=== PATIENT | female | born 1940 | race Caucasian/White ===

== ENCOUNTER 2017-12-15 11:20 | Inpatient (IN) ==
--- NOTE | 2017-12-15 07:25 | Discharge Summary ---
Orders not resulted at time of discharge: Pending orders 12/15/17 07:23 XR knee RT 1-2V [XR] Routine H/H [Hemoglobin and Hematocrit] [HEME] Routine Date of Encounter: 12/17/17 Time of Encounter: 13:46 - Discharge Diagnosis (1) Status post total knee replacement, right Priority: Primary Status: Acute Comments: Opsite dressing, leave intact until first post-operative visit. If dressing becomes >50% saturated, contact office, remove dressing and place appropriate dressing in its place. Do not allow for dressing to get wet. Zipline in place, plan to remove at post-operative day #14-16. Total Joint Precautions x 6 weeks Apply cold therapy wrap 3-6x/day for 20 minutes at a time. Encourage ambulation throughout the day Use Incentive spirometer 10x/hour. Elevate affected extremity above heart as tolerated. Brace: Wear knee immobilizer at night at first post-op appt (2) Arthritis of knee, right Priority: Primary Status: Acute (3) History of back surgery Priority: Secondary Status: Acute - Hospital Course Hospital course: Ms. Núñez is a 76 year old female status post Right TKR 12/15 with . Patient had uneventful postoperative course. Stable for discharge. . A&O x 3 Afebrile, vital signs stable. Labs reviewed. H/H - stable, asymptomatic Pain control: adequate Participating in PT. All questions and concerns addressed. Educated on use of incentive spirometer. Encouraged ambulation and proper hydration. Patient educated on post-operative restrictions and post-operative care. Assessment and plan: Continue with postoperative care Discharge plan: ECF , discharge today. - Time Spent with Patient Total time spent providing and/or coordinating discharge services: - Discharge Medications Home Medications: Aspirin Enteric Coated [Aspirin EC] 325 mg PO BID #20 tablet. 12/15/17 [Rx] Estrogens, Conjugated [Premarin] 0.625 mg PO DAILY 12/15/17 [History] Gabapentin [Neurontin] 600 mg PO TID 12/15/17 [History] OxyCODONE Immed Rel [Roxicodone 5 MG] 5 mg PO Q6HR PRN 7 Days #28 tablet 12/15/17 [Rx] Oxybutynin Chloride [Ditropan Xl] 10 mg PO DAILY 12/15/17 [History] Progesterone,Micronized [Prometrium] 100 mg PO DAILY 12/15/17 [History] Venlafaxine HCl [Venlafaxine HCl ER] 75 mg PO DAILY 12/15/17 [History] Lidocaine Patch [Lidoderm 5% patch] 1 each TP DAILY adh..patch 12/17/17 [Rx] Allergies/Adverse Reactions: Allergy/AdvReac Type Severity Reaction Status Date / Time acetaminophen [From Tylenol] Allergy Hives Verified 12/15/17 12:41 Primary care physician: Sean Davis MD - Patient Status Disposition: Transfer SNF Condition: Good Functional capacity at discharge: uses cane/walker Overall status at discharge: patient is not back to baseline - Discharge Instructions Instructions: Total Knee Replacement (DC) Follow Up With: Sean Davis MD [Primary Care Provider] -
[2017-12-15] MEDS ORDERED: *HR* FentaNYL (PF) 100 MCG/2 ML VIAL ONE (11:51)
[2017-12-15] MEDS ORDERED: *HR* Midazolam HCl 2 MG/2 ML VIAL ONE (11:52)
[2017-12-15] MEDS ORDERED: *HR* Propofol 200 MG/20 ML VIAL IVP ONE (11:52)
[2017-12-15] MEDS ORDERED: Lidocaine -MPF 2% 2 ML VIAL ONE (11:53)
[2017-12-15] MEDS ORDERED: CeFAZolin Syr 2,000MG/20 ML 2,000 MG/20 ML SYRINGE IVPB ONE (12:00)
[2017-12-15] MEDS ORDERED: Ringers Solution, Lactated 1,000 ML IVC SCH ×2 (12:00→16:28)
--- NOTE | 2017-12-15 12:09 | History & Physical Report ---
Date of Encounter: 12/15/17 Time of Encounter: 12:09 24 Hour HP Update - Instructions Instructions: If the History and Physical is less than 30 days old and was completed prior to A.M. admission and or procedure and has NOT been updated on calendar day of procedure please complete this update prior to performing procedure. - Update Patient reports changes in Medical Condition: No Changes in examination, assessment, or condition: No Changes in Medication: No Preop tests/diagnostics Reviewed: Yes Surgery Remains Indicated: Yes Consent for Planned Operative Procedure(s) Verified: Yes - Pre-Operative Checklist Preoperative Checklist Indicated: No Prophylactic Antibiotic Ordered: Yes Is VTE Prophylaxis Indicated?: Yes
[2017-12-15] MEDS ORDERED: Famotidine 20 MG/2 ML VIAL IVP ONE (12:16)
[2017-12-15] MEDS ORDERED: Acetaminophen IV 1,000 MG/100 ML INFUS..BTL ONE (12:18)
[2017-12-15] MEDS ORDERED: Famotidine 20 MG/2 ML VIAL ONE (12:18)
--- NOTE | 2017-12-15 12:28 | Anesthesia Evaluation PreOp ---
Date of Encounter: 12/15/17 Time of Encounter: 12:20 - Past History Planned Operation: Rt TKA Cardiac History: Denies any Significant Hx Pulmonary History: Denies Any Significant HX BIOLOGY ADJUNCT INSTRUCTOR History: Denies Any Significant HX Other Medical History: Other (Arthritis Anxiety Depression) Anesthesia History: No Prior Anesthetic Complications Alcohol Use: none Drug use: none Medications and Allergies Aspirin 03/18/17 [History] Benzonatate [Tessalon] 100 mg PO TID PRN #18 capsule 03/18/17 [Rx] Cipro Premix 400 MG/200 ML 03/18/17 [History] Effexor 03/18/17 [History] Oseltamivir [Tamiflu] 75 mg PO BID 5 Days #10 capsule 03/18/17 [Rx] Prednisone 03/18/17 [History] Aspirin Enteric Coated [Aspirin EC] 325 mg PO BID #20 tablet.dr 12/15/17 [Rx] OxyCODONE Immed Rel [Roxicodone 5 MG] 5 mg PO Q6HR PRN 7 Days #28 tablet 12/15/17 [Rx] Allergy/AdvReac Type Severity Reaction Status Date / Time acetaminophen [From Tylenol] Allergy Hives Verified 11/21/17 14:49 - Meds/Allergy Pre-op Review Medications Reviewed: Yes Allergies Reviewed: Yes Beta Blockers on Current Med List: No Anesthesia Results - Labs Laboratory Tests 11/21/17 11/21/17 11/21/17 15:40 15:40 15:40 Hgb 13.4 Hct 39.7 Plt Count 255 PT 11.3 INR 1.0 APTT 28.7 Sodium 138 Potassium 3.9 BUN 16 Creatinine 0.77 Anesthesia Exam O2 Sat Height 1.6 m Height 1.6 m Height 1.6 m Weight 70.307 kg Weight 70.307 kg Weight 70.307 kg O2 Sat by Pulse Oximetry 97 Vital Signs Temp Pulse Resp BP Pulse Ox 97.6 F 74 18 166/90 97 12/15/17 11:48 12/15/17 11:48 12/15/17 11:48 12/15/17 11:48 12/15/17 11:48 Height: 5'3 Weight: 155 lbs NPO (# of Hours): MN Pain Scale: 0 - HEENT Pupil (Motor): Pupils equal, EOMI Mallampati: II Oral Opening: Greater than 3 - BIOLOGY ADJUNCT INSTRUCTOR LOC: Oriented BIOLOGY ADJUNCT INSTRUCTOR Motor: Normal RUE, Normal LUE, Normal RLE, Normal LLE, Normal Face BIOLOGY ADJUNCT INSTRUCTOR Sensory: Normal: RUE, LUE, RLE, LLE, Face - Cardiac Rhythm: Regular Murmur: None JVD: No Carotid Bruit: No - Pulmonary Breath Sounds: bilateral Clear Respiratory Effort: Symmetrical Anesthesia Assess/Plan ASA Score: 2 Modified [place] Scale for Level of Consciousness: Cooperative, oriented, and tranquil Anesthetic Plan: General, Regional Monitoring Plan: Standard Monitors Recovery Plan: PACU (Discussed GA and Adductor Canal Block, agrees to proceed)
[2017-12-15] MEDS ORDERED: ROPIVACAINE HCL/PF 0.5% 30 ML VIAL ONE (12:35)
[2017-12-15] MEDS ORDERED: Tetracaine/PF 20 MG/2 ML AMPUL ONE (12:37)
[2017-12-15] MEDS ORDERED: Bupivacaine/Clonidine Syringe 1 EACH SYRINGE ONE (12:37)
[2017-12-15] MEDS ORDERED: Ethanol\\Acetic Acid\\Na Ace\\Ben 1,000 ML IRRIG.SOLN IR ONE (12:48)
--- NOTE | 2017-12-15 13:05 | Anesthesia Procedures ---
Date of Encounter: 12/15/17 Time of Encounter: 13:03 Procedures: Anesthesia - Nerve Block Procedure Date: 12/15/17 Time: 13:03 Allergies/Adv Reactions: acetaminophen Pre-op Diagnosis: Right Knee DJD Surgical Procedure: Right total knee arthroplasty Checklist: Correct Patient Identifier, Correct procedure, History checked Correct side: Right Blood Thinner: No Monitor Applied: BP, Pulse Oximetry Supplemental Oxygen via Nasal Cannula (L/min): 3 Sedation: Versed (mg): 2 Sedation: Fentanyl (mcg): 100 Indication: Post Op Analgesia Pre-op Neuro Deficits: No Block Type: Other (adductor canal, ipack, MARCELA) Catheter placed: No Sterile Technique: Yes Ultrasound used: Yes Anatomy identified: Yes Visual spread of Local: Yes Neuro Stimulation: No Blood on Needle Aspiration: No Smooth Injection of Local: Yes Pain with Injection of Local: No Prep: Chlorhexadine Needle: 22 x 50 mm Stimuplex, 21 x 100 mm Stimuplex Local: 0.25% Bupivicaine w/Clonidine 20 mcg/cc (20 ml, ipack), Ropivacaine (0.5% 30ml) Volume (cc): 50 Number of Attempts: 1 Complications: None/effective block Vitals: Vital Signs/O2 Sat, Most Current Temp Pulse Resp BP Pulse Ox 97.6 F 77 16 167/94 99 12/15/17 12:31 12/15/17 12:39 12/15/17 12:39 12/15/17 12:39 12/15/17 12:39 Comments: Pt tolerated procedure well. No complications.
[2017-12-15] MEDS ORDERED: *HR* PHENYLEPHRINE 1,000 MCG/10 ML SYRINGE IVP ONE (13:23)
[2017-12-15] MEDS ORDERED: Dexamethasone 4 MG/ML VIAL ONE ×3 (13:23→13:37)
[2017-12-15] MEDS ORDERED: EPHEDrine 50 MG/ML VIAL ONE (13:23)
[2017-12-15] MEDS ORDERED: *HR* Morphine 10 MG/ML VIAL ONE (13:33)
[2017-12-15] MEDS ORDERED: Ondansetron 4 MG/2 ML VIAL ONE (13:36)
[2017-12-15] MEDS ORDERED: *HR* Succinylcholine 200 MG/10 ML VIAL IVP ONE (13:38)
--- NOTE | 2017-12-15 14:04 | Orthopedic Operative Note ---
Date of procedure: 12/15/17 Pre-op diagnosis: Right knee arthritis Post-op diagnosis: same Procedure: Procedure: Right robotic-assisted Total knee replacement Estimated blood loss: 200 cc Hardware: Metal and polyethylene replacement. [place] Femur: 2 Tibia: 2 TS insert: 9 Patella: 36 Exam Under anesthesia: 7 degrees flexion contracture 10 degree varus as calculated by the robot full flexion and no instability Procedural Notes: Grade 4 arthritic changes all 3 compartments. Operative procedure: The patient was brought to the operating room and placed on the operating room table. After general anesthesia was administered the operative knee was examined. Findings were noted in the exam under anesthesia. The operative extremity was prepped and draped in sterile surgical fashion. The patient received IV antibiotics prior to skin incision. A standard midline incision was made centered over the patella. The incision was made through the skin and subcutaneous tissue. A medial parapatellar tendon approach was performed. Care was taken to preserve tissue along the medial aspect of the patella. And to protect the patella tendon. The deep MCL was released off the medial tibia. The infra patella fat pad was excised. The patella was everted and cut was made at the level of the insertion of the quadriceps and patella tendon. The patella was sized the guide was seated and the lug holes are drilled. Knee was brought into flexion. Patient noted to have grade 4 arthritic changes all 3 compartments. Steinmann pins were placed in the tibia and the femur for the tibial and femoral arrays respectively. Checkpoints were also placed in the tibia and the femur for calculation purposes. The knee including the femur and the tibial registered. Osteophytes, ACL and PCL were excised at this point. Extension and flexion were assessed with a valgus stress components were adjusted on the computer to balance the knee. Femoral cuts were made first with robotic assistance, these included the anterior cut posterior cuts chamfer cuts. Tibial cut was then performed with robotic assistance as well. Bone fragments were removed, as well as the medial and lateral meniscus. The size 2 femoral guide was seated box cut was made lug holes are drilled. The size 2 tibial tray was seated and prepared with the fin cutter. Trial reduction with the 9 TS Allyson revealed extension of 0 degrees flexion- extension, 6 degrees varus and full flexion. No varus valgus instability. Trial reduction revealed excellent patella tracking. All trial components were removed all bony surfaces were irrigated. The Tibia was seated followed by the femur, The selected Allyson size was seated and secured patella. Patient had similar findings for motion and stability. The knee was closed by the PA. The knee was then irrigated out with 2 L of pulse irrigation. The extensor mechanism was closed with #2 FiberWire suture and #2 PDS suture. The subcutaneous tissue was then irrigated and closed deep with #1 PDS suture superficially with 0 PDS suture and skin was closed with zip tie The patient was then placed in a sterile dressing and a postoperative brace extubated and transferred to recovery room in stable condition. Anesthesia: GETA Surgeon: Jacob Linton Was there an content assistant present: No Estimated blood loss (cc): 200 Condition: stable Disposition: PACU
[2017-12-15] MEDS ORDERED: *HR* OxyCODONE Immed Rel 5 MG TABLET PO PRN (14:21)
[2017-12-15] MEDS ORDERED: Ondansetron 4 MG/2 ML VIAL IVP ONE (14:21)
[2017-12-15] MEDS ORDERED: *HR* HYDROmorphone (PF) 1 MG/ML SYRINGE ONE (14:37)
[2017-12-15] MEDS ORDERED: Ketorolac 30 MG/ML VIAL ONE (14:37)
[2017-12-15] MEDS: *HR* Morphine 2 MG/ML SYRINGE IVP PRN ×4 (14:49→15:10)
[2017-12-15 15:13] LABS: Hematocrit 35.1 % (35.3-44.9); Hemoglobin 11.6 g/dL (11.5-15.4)
[2017-12-15] MEDS ORDERED: Lidocaine -MPF 2% 5 ML VIAL ONE (15:18)
--- NOTE | 2017-12-15 15:54 | Anesthesia Procedures ---
Date of Encounter: 12/15/17 Time of Encounter: 15:35 Procedures: Anesthesia - Nerve Block Procedure Date: 12/15/17 Time: 15:35 Surgical Procedure: Rt TKA Checklist: Correct Patient Identifier Correct side: Right Blood Thinner: No Monitor Applied: EKG, BP, Pulse Oximetry Supplemental Oxygen via Nasal Cannula (L/min): 2 Block Type: Femoral (Rescue Fem Block in PACU) Catheter placed: No Sterile Technique: Yes Ultrasound used: Yes Anatomy identified: Yes Visual spread of Local: Yes Neuro Stimulation: No Blood on Needle Aspiration: No Smooth Injection of Local: Yes Pain with Injection of Local: No Prep: Chlorhexadine Needle: 22 x 50 mm Stimuplex Local: Other (Lidocaine Bupivacaine) Volume (cc): 20cc Number of Attempts: 1 Complications: None/effective block Vitals: Vital Signs/O2 Sat/Glucose, Most Current Temp Pulse Resp BP Pulse Ox 12/15/17 15:42 85 14 110/73 96 12/15/17 15:32 98.9 F 77 10 116/60 96 12/15/17 15:22 80 14 118/69 98 12/15/17 15:12 85 16 129/76 98 12/15/17 15:02 98.4 F 75 16 131/69 95 12/15/17 14:52 82 19 118/69 95 12/15/17 14:42 83 16 129/76 98 12/15/17 14:32 99.1 F 97 20 131/69 98 12/15/17 12:39 77 16 167/94 99 12/15/17 12:31 97.6 F 74 18 166/90 97
[2017-12-15] MEDS ORDERED: Naloxone 0.4 MG/ML INJ IVP PRN (16:28)
[2017-12-15] MEDS ORDERED: MOM Conc 10 ML UD.LIQ PO PRN (16:28)
[2017-12-15] MEDS ORDERED: Sennosides 8.6 MG TABLET PO PRN (16:28)
[2017-12-15] MEDS ORDERED: Acetaminophen IV 1,000 MG/100 ML INFUS..BTL IVPB ONE (16:28)
[2017-12-15] MEDS ORDERED: traMADol 50 MG TABLET PO PRN (16:28)
[2017-12-15] MEDS ORDERED: *HR* OxyCODONE/APAP 5/325 TABLET PO PRN (16:28)
[2017-12-15] MEDS ORDERED: Temazepam 15 MG CAPSULE PO PRN (16:28)
--- NOTE | 2017-12-15 16:59 | Anesthesia Evaluation Post Op ---
Date of Encounter: 12/15/17 Time of Encounter: 16:35 - Vital Signs Vital Signs: Vital Signs/O2 Sat/Glucose, Most Current Temp Pulse Resp BP Pulse Ox 12/15/17 16:30 97.7 F 88 16 122/51 97 12/15/17 16:02 98.9 F 85 16 113/82 96 12/15/17 15:52 98.9 F 80 16 123/66 96 12/15/17 15:42 85 14 110/73 96 12/15/17 15:32 98.9 F 77 10 116/60 96 12/15/17 15:22 80 14 118/69 98 12/15/17 15:12 85 16 129/76 98 12/15/17 15:02 98.4 F 75 16 131/69 95 12/15/17 14:52 82 19 118/69 95 12/15/17 14:42 83 16 129/76 98 12/15/17 14:32 99.1 F 97 20 131/69 98 - Lungs Lungs: Clear Ascult./Percussion - Airway Airway: Non-obstructed - Cardiovascular Regular Rate - Mental Status Mental Status: Alert & Oriented, Answers Appropriately - Pain Pain Scale: 3 - Nausea Vomiting Nausea Vomiting: Not Present - Hydration Hydration: Ice chips - Discharge PostOp Status: Transfer Patient to floor
[2017-12-15] MEDS: Gabapentin 300 MG CAPSULE PO SCH ×2 (17:25→20:28)
[2017-12-15] MEDS: *HR* OxyCODONE Immed Rel 5 MG TABLET PO PRN (17:40)
[2017-12-15] MEDS: *HR* Enoxaparin 30 MG/0.3 ML SYRINGE SQ SCH (17:40)
[2017-12-15] MEDS ORDERED: *HR* Enoxaparin 30 MG/0.3 ML SYRINGE SQ SCH (18:00)
[2017-12-15] MEDS: Ondansetron 4 MG/2 ML VIAL IVP PRN (21:08)
[2017-12-16] MEDS: *HR* OxyCODONE Immed Rel 5 MG TABLET PO PRN ×5 (00:15→18:50)
[2017-12-16] MEDS: *HR* Enoxaparin 30 MG/0.3 ML SYRINGE SQ SCH ×2 (05:06→17:23)
[2017-12-16 05:23] LABS: Hematocrit 32.3 % (35.3-44.9); Hemoglobin 10.6 g/dL (11.5-15.4)
[2017-12-16 05:41] LABS: BUN/Creatinine Ratio 35 (6-26); Blood Urea Nitrogen 25 mg/dL (8-23); Calcium 9.1 mg/dL (8.6-10.3); Carbon Dioxide 28 mEq/L (23-29); Chloride 104 mEq/L (98-107); Glucose 132 mg/dL (70-105); Osmolality,Calculated 292 (280-300); Potassium 4.5 mEq/L (3.5-5.1); Sodium 138 mEq/L (136-145); eGFR For Non-African Americans > 60 (> 60)
--- NOTE | 2017-12-16 06:30 | Orthopedics Progress Note ---
Date of Encounter: 12/16/17 Time of Encounter: 06:30 Subjective Interval history: Patient was seen this morning doing well without complaints. Afebrile vital signs stable. Operative extremity: Neurovascularly intact Dressing clean dry and intact Calves nontender Assessment and plan: Continue with postoperative care Hematocrit 32 Objective Vital signs: Vital Signs Temp Pulse Resp BP Pulse Ox 12/16/17 04:54 97.6 F 78 16 119/67 90 12/16/17 00:30 97.7 F 76 16 114/70 90 12/15/17 19:30 97.7 F 80 16 123/74 94 12/15/17 18:30 97.5 F L 80 16 117/87 96 12/15/17 17:30 97.6 F 80 16 119/78 96 12/15/17 17:00 97.9 F 86 16 131/74 97 12/15/17 16:30 97.7 F 88 16 122/51 97 12/15/17 16:29 97 12/15/17 16:02 98.9 F 85 16 113/82 96 12/15/17 15:52 98.9 F 80 16 123/66 96 12/15/17 15:42 85 14 110/73 96 12/15/17 15:32 98.9 F 77 10 116/60 96 12/15/17 15:22 80 14 118/69 98 12/15/17 15:12 85 16 129/76 98 12/15/17 15:02 98.4 F 75 16 131/69 95 12/15/17 14:52 82 19 118/69 95 12/15/17 14:42 83 16 129/76 98 12/15/17 14:32 99.1 F 97 20 131/69 98 12/15/17 12:39 77 16 167/94 99 12/15/17 12:31 97.6 F 74 18 166/90 97 12/15/17 11:48 97.6 F 74 18 166/90 97 Intake and Output 12/15/17 12/15/17 12/16/17 15:59 23:59 07:59 Intake Total 100 / 100 50 / 50 Output Total 200 / 200 200 / 200 Balance -200 / -200 -100 / -100 50 / 50 Intake: IV Fluids 100 / 100 Ancef 2,000 MG In 0.9 % Sodium 100 / 100 Chloride 100 ML @ 200 mls/hr IVPB Q8H [place]RADO Rx#:[id number] Oral 50 / 50 Output: Urine 200 / 200 Estimated Blood Loss 200 / 200 Other: # Voids 1 Weight 70.307 kg - Labs CBC & BMP: 12/16/17 04:58 12/16/17 04:58 Labs: Abnormal lab results Hgb 10.6 g/dL (11.5-15.4) L 12/16/17 04:58 Hct 32.3 % (35.3-44.9) L 12/16/17 04:58 BUN 25 mg/dL (8-23) H 12/16/17 04:58 BUN/Creatinine Ratio 35 (6-26) H 12/16/17 04:58 Glucose 132 mg/dL (70-105) H 12/16/17 04:58 - VTE Documentation of Mechanical Device: Venous foot pump, device Consult Discharge Plan - Plan Referrals: Sean Davis MD [Primary Care Provider] -
[2017-12-16] MEDS: Venlafaxine XR (24 HR) 75 MG CAP.ER.24H PO SCH (07:58)
[2017-12-16] MEDS: Gabapentin 300 MG CAPSULE PO SCH ×3 (07:58→20:34)
[2017-12-16] MEDS: Ondansetron 4 MG/2 ML VIAL IVP PRN (08:00)
[2017-12-16] MEDS: PROGESTERONE MICRONIZED 100 MG PO SCH (08:07)
[2017-12-17] MEDS: *HR* OxyCODONE Immed Rel 5 MG TABLET PO PRN ×3 (01:39→14:26)
[2017-12-17] MEDS: *HR* Enoxaparin 30 MG/0.3 ML SYRINGE SQ SCH (05:19)
[2017-12-17 06:07] LABS: Hematocrit 29.9 % (35.3-44.9); Hemoglobin 10.1 g/dL (11.5-15.4)
[2017-12-17 06:40] LABS: BUN/Creatinine Ratio 25 (6-26); Blood Urea Nitrogen 18 mg/dL (8-23); Calcium 8.9 mg/dL (8.6-10.3); Carbon Dioxide 27 mEq/L (23-29); Chloride 101 mEq/L (98-107); Glucose 112 mg/dL (70-105); Osmolality,Calculated 283 (280-300); Potassium 3.9 mEq/L (3.5-5.1); Sodium 135 mEq/L (136-145); eGFR For Non-African Americans > 60 (> 60)
--- NOTE | 2017-12-17 08:06 | Orthopedics Progress Note ---
Date of Encounter: 12/17/17 Time of Encounter: 08:05 Subjective Interval history: Patient was seen this morning doing well without complaints. Afebrile vital signs stable. Operative extremity: Neurovascularly intact Dressing clean dry and intact Calves nontender Assessment and plan: Continue with postoperative care Objective Vital signs: Vital Signs Temp Pulse Resp BP Pulse Ox 12/17/17 03:39 98.3 F 80 16 138/68 92 12/16/17 23:05 98.4 F 94 18 143/71 92 12/16/17 19:51 97.9 F 91 16 118/62 93 12/16/17 16:11 98.2 F 87 16 151/72 88 Intake and Output 12/16/17 12/17/17 12/17/17 23:59 07:59 15:59 Intake Total 200 / 200 Balance 200 / 200 Intake: Oral 200 / 200 Other: Weight 70.3 kg - Labs CBC & BMP: 12/17/17 05:43 12/17/17 05:43 Labs: Abnormal lab results Hgb 10.1 g/dL (11.5-15.4) L 12/17/17 05:43 Hct 29.9 % (35.3-44.9) L 12/17/17 05:43 Sodium 135 mEq/L (136-145) L 12/17/17 05:43 Glucose 112 mg/dL (70-105) H 12/17/17 05:43 - VTE Documentation of Mechanical Device: Venous foot pump, device Consult Discharge Plan - Plan Referrals: Sean Davis MD [Primary Care Provider] -
[2017-12-17] MEDS: PROGESTERONE MICRONIZED 100 MG PO SCH (08:56)
[2017-12-17] MEDS: Venlafaxine XR (24 HR) 75 MG CAP.ER.24H PO SCH (08:56)
[2017-12-17] MEDS: Gabapentin 300 MG CAPSULE PO SCH ×2 (08:56→14:26)
[2017-12-17 11:27] VITALS: BP 151/81
--- NOTE | 2017-12-17 13:45 | Physician Discharge Referral ---
ExtendedCare Referral Info Transfer To: [facility] Provider in Charge: Provider in Charge after Transfer: PCP Institutional Level of Care: Skilled - Diagnosis (1) Status post total knee replacement, right Priority: Primary Status: Acute (2) Arthritis of knee, right Priority: Primary Status: Acute (3) History of back surgery Status: Acute - Transfer Medications Home Medications: Aspirin Enteric Coated [Aspirin EC] 325 mg PO BID #20 tablet.dr 12/15/17 [Rx] Estrogens, Conjugated [Premarin] 0.625 mg PO DAILY 12/15/17 [History] Gabapentin [Neurontin] 600 mg PO TID 12/15/17 [History] OxyCODONE Immed Rel [Roxicodone 5 MG] 5 mg PO Q6HR PRN 7 Days #28 tablet 12/15/17 [Rx] Oxybutynin Chloride [Ditropan Xl] 10 mg PO DAILY 12/15/17 [History] Progesterone,Micronized [Prometrium] 100 mg PO DAILY 12/15/17 [History] Venlafaxine HCl [Venlafaxine HCl ER] 75 mg PO DAILY 12/15/17 [History] Lidocaine Patch [Lidoderm 5% patch] 1 each TP DAILY adh..patch 12/17/17 [Rx] Allergies/Adverse Reactions: Allergy/AdvReac Type Severity Reaction Status Date / Time acetaminophen [From Tylenol] Allergy Hives Verified 12/15/17 12:41 - Respiratory Orders None Smoking Cessation: Smoking cessation has been advised. For more information, call the [place] Tobacco Quit Line at 5-629-KKWM-NOW. - Advance Directives Code Status: Full Code - Rehabiliation Orders Rehab Potential: Good Rehab Orders: ROM Exercises, Evaluation for Physical Therapy, Evaluation for Occ upational Therapy - Treatments Skin tear care topically daily PRN per policy, May check for fecal impaction rectally daily PRN, Fleet enema rectally every other day PRN cleansing purposes List/Other: Opsite dressing, leave intact until first post-operative visit. If dressing becomes >50% saturated, contact office, remove dressing and place appropriate dressing in its place. Do not allow for dressing to get wet. Zipline/Como in place, plan to remove at post-operative day #14-16. Total Joint Precautions x 6 weeks Apply cold therapy wrap 3-6x/day for 20 minutes at a time. Encourage ambulation throughout the day Use Incentive spirometer 10x/hour. Elevate affected extremity above heart as tolerated. Brace: Wear knee immobilizer at night at first post-op appt - Diet Orders Regular CERTIFICATION: I certify that the transfer of the above named patient to an Extended Care Facility is necessary for the continuing treatment of the diagnosis listed. The above information is true and accurate reflection of patient's current condition. Confidential - Redisclosure prohibited without a patient's written consent.
--- NOTE | 2017-12-18 18:11 | Event Note ---
Date of Encounter: 12/16/17 Time of Encounter: 13:00 POD#1 - Patient doing well. Pain controlled, unless after PT. Will Add Lidoderm patch. Change dressing d/t saturation.
== END 2017-12-17 16:00 | DRG 470 ==
LOC: SAMDAY 11:20 → 3NENU 16:13
PROVIDERS: ADMIT Orthopaedic Surgery; ATTEND Orthopaedic Surgery